=== PATIENT | female | born 1930 | race Caucasian/White ===

== ENCOUNTER 2018-09-06 14:57 | Inpatient (IN) | payer MEDICARE ==
--- NOTE | 2018-09-06 15:26 | ER Document Report ---
ED Respiratory Problem - General Stated Complaint: DIFFICULTY BREATHING Time Seen by Provider: 09/06/18 15:09 Mode of Arrival: Stretcher Information source: Relative TRAVEL OUTSIDE OF THE [place] IN LAST 30 DAYS: No - HPI Patient complains to provider of: Cough, Short of breath Onset: Other - 3 days Duration: Worse/persistent Severity: Moderate Context: Hx CHF Short of Breath: Moderate Cough: Nonproductive Associated symptoms: Ankle/leg swelling, Congestion, Cough, Difficulty breathing, Short of breath Notes: Patient is an 88-year-old female brought to the emergency room by EMS from [facility] for complaints of fever, edema, shortness of breath, nonproductive cough, decreased responsiveness, family who accompanied patient to the emergency department reports that her symptoms have been worsening over the past 3 days, 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, was discharged to rehab facility secondary to ongoing need for IV antibiotics, has a PICC line in the left upper extremity, patient also has a history of atrial fibrillation, and congestive heart failure, family reports and I confirmed from intermediate reports that patient is not currently on any furosemide or blood thinner, although she has been in the past, she has become increasing lethargic, has had approximate 40 pound weight gain since June and her overall health has declined with significant worsening over the past 2-3 days - Related Data Allergies/Adverse Reactions: No Known Allergies Allergy (Unverified 09/06/18 19:46) Past Medical History - General Information source: Relative - Social History Smoking Status: Unknown if Ever Smoked Family History: Reviewed & Not Pertinent Review of Systems - Review of Systems Constitutional: See HPI EENT: No symptoms reported Cardiovascular: See HPI Respiratory: See HPI Gastrointestinal: No symptoms reported Genitourinary: No symptoms reported Female Genitourinary: No symptoms reported Musculoskeletal: No symptoms reported Skin: No symptoms reported Hematologic/Lymphatic: No symptoms reported Neurological/Psychological: See HPI -: Yes All other systems reviewed and negative Physical Exam - Vital signs Vitals: Pulse Ox 93 09/06/18 15:08 Interpretation: Tachycardic - General General appearance: Lethargic In distress: Moderate - HEENT Head: Normocephalic, Atraumatic Eyes: Normal Conjunctiva: Normal Eyelashes: Normal Pupils: PERRL Pharynx: Normal Neck: Normal - Respiratory Respiratory status: Labored Chest status: Nontender Breath sounds: Rales Chest palpation: Normal - Cardiovascular Rhythm: Irregularly irregular, Tachycardia Murmur: No - Abdominal Inspection: Normal, Obese Distension: No distension Bowel sounds: Normal Tenderness: Nontender Organomegaly: No organomegaly - Back Back: Normal, Nontender - Extremities General upper extremity: Edema, Normal ROM, Normal temperature General lower extremity: Edema, Normal ROM. No: Hunter's sign - Neurological Neuro grossly intact: Yes Cognition: Inattentive Katina Coma Scale Eye Opening: To Voice Katina Coma Scale Verbal: Confused Katina Coma Scale Motor: Obeys Commands Goodman Coma Scale Total: 13 Motor strength normal: LUE, RUE, LLE, RLE - Skin Skin Temperature: Cool Skin Moisture: Dry Skin Color: Pale Course - Re-evaluation Re-evalutation: 09/06/18 17:02 Patient discussed with hospitalist, Dr. Mendoza who agrees to admit but would like to evaluate patient to decide which type of bed assignment patient requires 09/06/18 28:24 Patient was seen and evaluated by Dr. Mendoza who requested an IMCU bed - Vital Signs Vital signs: Temp Pulse Resp BP Pulse Ox 97.4 F 16 91/55 L 96 09/06/18 19:08 09/06/18 21:01 09/06/18 21:00 09/06/18 21:01 - Laboratory Result Diagrams: 09/06/18 15:42 09/06/18 15:42 Laboratory results interpreted by me: 09/06/18 09/06/18 09/06/18 15:42 15:42 15:42 WBC 0.4 L* RBC 3.58 L Hgb 10.1 L Hct 31.2 L RDW 20.1 H Seg Neutrophils % 3.5 L Lymphocytes % 72.3 H Monocytes % 20.4 H Absolute Neutrophils 0.0 L Absolute Lymphocytes 0.3 L PT APTT Chloride 108 H Carbon Dioxide 19 L BUN 32 H Est GFR ( Amer) 54 L Est GFR (Non-Af Amer) 45 L Lactic Acid Direct Bilirubin Alkaline Phosphatase NT-Pro-B Natriuret Pep 71015 H Total Protein Albumin Vitamin B12 TSH Free T3 pg/mL Urine Ascorbic Acid 09/06/18 09/06/18 09/06/18 15:42 15:42 15:42 WBC RBC Hgb Hct RDW Seg Neutrophils % Lymphocytes % Monocytes % Absolute Neutrophils Absolute Lymphocytes PT 16.8 H APTT 43.0 H Chloride Carbon Dioxide BUN Est GFR ( Amer) Est GFR (Non-Af Amer) Lactic Acid 3.6 H Direct Bilirubin Alkaline Phosphatase NT-Pro-B Natriuret Pep Total Protein Albumin Vitamin B12 TSH 39.70 H Free T3 pg/mL 1.41 L Urine Ascorbic Acid 09/06/18 09/06/18 15:42 18:28 WBC RBC Hgb Hct RDW Seg Neutrophils % Lymphocytes % Monocytes % Absolute Neutrophils Absolute Lymphocytes PT APTT Chloride Carbon Dioxide BUN Est GFR ( Amer) Est GFR (Non-Af Amer) Lactic Acid Direct Bilirubin 0.7 H Alkaline Phosphatase 153 H NT-Pro-B Natriuret Pep Total Protein 5.6 L Albumin 2.3 L Vitamin B12 983.0 H TSH Free T3 pg/mL Urine Ascorbic Acid 20 H - Diagnostic Test Radiology reviewed: Image reviewed, Reports reviewed - EKG Interpretation by Ak EKG shows normal: Sinus rhythm Rate: Tachycardia Discharge - Discharge Clinical Impression: Neutropenic fever Congestive heart failure Qualifiers: Heart failure type: unspecified Heart failure chronicity: unspecified Qualified Code(s): I50.9 - Heart failure, unspecified Condition: Critical Disposition: ADMITTED INPATIENT Admitting Provider: Hospitalist Unit Admitted: [facility]
[2018-09-06 15:58] LABS: VENOUS BLOOD BASE EXCESS -5.8 mmol/L; VENOUS BLOOD HCO3 20.2 mmol/L (20-32); VENOUS BLOOD PCO2 41.5 mmHg (35-63); VENOUS BLOOD PH 7.31 (7.30-7.42)
[2018-09-06 16:09] LABS: ABSOLUTE LYMPHOCYTES (AUTO) 0.3 10^3/uL (0.5-4.7); ABSOLUTE MONOCYTES (AUTO) 0.1 10^3/uL (0.1-1.4); EOSINOPHILS % (AUTO) 3.8 % (0-6); HEMATOCRIT 31.2 % (36.0-47.0); HEMOGLOBIN 10.1 g/dL (12.0-15.5); LYMPHOCYTES % (AUTO) 72.3 % (13-45); MEAN CORPUSCULAR HEMOGLOBIN 28.1 pg (27.0-33.4); MEAN CORPUSCULAR HGB CONC 32.3 g/dL (32.0-36.0); MEAN CORPUSCULAR VOLUME 87 fl (80-97); MONOCYTES % (AUTO) 20.4 % (3-13); RED BLOOD COUNT 3.58 10^6/uL (3.72-5.28); RED CELL DISTRIBUTION WIDTH 20.1 % (11.5-14.0); SEGMENTED NEUTROPHILS % (AUTO) 3.5 % (42-78); TOTAL CELLS COUNTED % (AUTO) 100 %
[2018-09-06 16:10] LABS: ANION GAP 11 (5-19); BLOOD UREA NITROGEN 32 mg/dL (7-20); CALCIUM 8.5 mg/dL (8.4-10.2); CARBON DIOXIDE 19 mmol/L (22-30); CHLORIDE 108 mmol/L (98-107); GLUCOSE 83 mg/dL (75-110); POTASSIUM 4.5 mmol/L (3.6-5.0); SODIUM 138.2 mmol/L (137-145)
[2018-09-06 16:14] LABS: PROTHROMBIN TIME 16.8 SEC (11.4-15.4)
[2018-09-06 16:23] LABS: NT PRO BNP 10700 pg/mL (<450)
[2018-09-06 16:27] LABS: TROPONIN I < 0.012 ng/mL
[2018-09-06 16:28] LABS: FREE T3 1.41 pg/mL (2.77-5.27); FREE T4 (FREE THYROXINE) 1.17 ng/dL (0.78-2.19)
[2018-09-06 16:36] LABS: WHITE BLOOD COUNT 0.4 10^3/uL (4.0-10.5)
[2018-09-06 16:37] LABS: PLATELET COUNT 189 10^3/uL (150-450)
[2018-09-06 16:38] LABS: ANISOCYTOSIS 2+; BURR CELLS 1+; OVALOCYTES SLIGHT; PLATELET CLUMPS PRESENT; PLATELET COMMENT ADEQUATE; POIKILOCYTOSIS 2+
[2018-09-06 16:42] LABS: THYROID STIMULATING HORMONE 39.7 uIU/mL (0.47-4.68)
[2018-09-06 17:11] LABS: A TYPE INFLUENZA AG NEGATIVE (NEGATIVE); B INFLUENZA AG NEGATIVE (NEGATIVE)
--- NOTE | 2018-09-06 17:13 | RADIOLOGY REPORT (SQ) ---
EXAM DESCRIPTION: CHEST 2 VIEWS COMPLETED DATE/TIME: 09/06/2018 4:28 pm REASON FOR STUDY: cough, fever COMPARISON: None. EXAM PARAMETERS: NUMBER OF VIEWS: two views TECHNIQUE: Digital Frontal and Lateral radiographic views of the chest acquired. RADIATION DOSE: NA LIMITATIONS: none FINDINGS: LUNGS AND PLEURA: Small bilateral pleural effusions. MEDIASTINUM AND HILAR STRUCTURES: No masses or contour abnormalities. HEART AND VASCULAR STRUCTURES: Cardiomegaly status post median sternotomy. BONES: Disc degenerative disease of the thoracic spine. HARDWARE: None in the chest. OTHER: No other significant finding. IMPRESSION: Cardiomegaly with small bilateral pleural effusions. TECHNICAL DOCUMENTATION: JOB ID: [id number] [employer]- All Rights Reserved Reading location - IP/workstation name: [email or web address]
[2018-09-06] MEDS ORDERED: FUROSEMIDE INJ/PF 20 MG/2 ML SDV IV ONE (18:32)
[2018-09-06 18:59] LABS: APPEARANCE,URINE SLIGHTLY-CLOUDY; BILIRUBIN,URINE NEGATIVE (NEGATIVE); COLOR,URINE AMBER; GLUCOSE, URINE NEGATIVE (NEGATIVE); KETONES,URINE NEGATIVE (NEGATIVE); LEUKOCYTE ESTERASE,URINE NEGATIVE (NEGATIVE); NITRITE,URINE NEGATIVE (NEGATIVE); PROTEIN,URINE NEGATIVE (NEGATIVE); URINE SPECIFIC GRAVITY 1.019; UROBILINOGEN,URINE NEGATIVE mg/dL (<2.0)
--- NOTE | 2018-09-06 19:05 | PDOC H&P ---
History of Present Illness Admission Date/PCP: AMRIT CHACKO MD History of Present Illness: ALIVIA YU is a 88 year old female with a history of atrial fibrillation, hypothyroidism, and possibly heart failure, along with Alzheimer's dementia and history of stroke x2 who recently moved down here in June from [place] to be closer to her daughter. Shortly afterwards, while in assisted living, she fell and had a right femur fracture. She went to [facility] and had open reduction internal fixation. She went to a half-way facility and went back to [facility] because she had developed an infection of the prosthesis. Infectious disease was consulted and she was put on ceftaroline for an as yet unknown organism. She has been on this antibiotic for several weeks and has another couple of weeks to go. When she left [place] the second time, she went to a different half-way facility, [facility]. Her daughter does not think she is been getting her Lasix. She is apparently had a 40 pound weight gain since June, and the daughter has noticed that the patient has been extremely edematous. EMS was called because the patient was not doing well at the half-way facility. Apparently when EMS got there she had a temperature of 101.9 Fahrenheit. They gave her some Tylenol and came down to 97.8. She was brought to the hospital and was found to have numerous metabolic and hematologic derangements. White blood cell count was 0.4. BNP was 10,700. Lactate was 3.6. TSH was almost 40. She is being admitted for further evaluation and workup. Social History Smoking Status: Unknown if Ever Smoked Family History Family History: Reviewed & Not Pertinent Parental Family History Reviewed: Yes Children Family History Reviewed: Yes Sibling(s) Family History Reviewed.: Yes Review of Systems All systems: reviewed and no additional remarkable complaints except as stated - All systems reviewed with the patient and her daughter who was at the bedside and were negative except as noted above Physical Exam Vital Signs: Temp Pulse Resp BP Pulse Ox 22 H 100/68 93 09/06/18 16:01 09/06/18 16:01 09/06/18 16:01 General appearance: PRESENT: cooperative, disheveled, hard of hearing, mild distress Head exam: PRESENT: atraumatic, normocephalic Eye exam: PRESENT: EOMI, PERRLA. ABSENT: conjunctival injection, nystagmus, scleral icterus Ear exam: PRESENT: normal external ear exam Mouth exam: PRESENT: moist, neck supple Teeth exam: PRESENT: poor dentation Throat exam: PRESENT: post pharyngeal erythema Neck exam: PRESENT: full ROM, JVD - Bilateral. ABSENT: carotid bruit, lymphadenopathy, meningismus, tenderness, thyromegaly Respiratory exam: PRESENT: crackles - Bilateral, symmetrical, unlabored. ABSENT: accessory muscle use, chest wall tenderness, prolonged expiratory phas, rhonchi, tachypnea, wheezes Cardiovascular exam: PRESENT: irregular rhythm Pulses: PRESENT: normal carotid pulses Vascular exam: PRESENT: normal capillary refill GI/Abdominal exam: PRESENT: normal bowel sounds, soft. ABSENT: distended, guarding, rebound, tenderness Extremities exam: PRESENT: pedal edema, other - 3+ leg edema bilaterally, 3+ upper extremity edema bilaterally. ABSENT: clubbing Musculoskeletal exam: PRESENT: normal inspection - Surgical incision was unremarkable. ABSENT: deformity Neurological exam: PRESENT: awake, oriented to person, other - Could not oth erwise evaluate the patient's neurological status due to her inability to comply. ABSENT: oriented to place, oriented to situation Psychiatric exam: PRESENT: flat affect Skin exam: PRESENT: dry, warm Results Laboratory Results: 09/06/18 15:42 09/06/18 15:42 09/06/18 09/06/18 09/06/18 15:42 15:42 15:42 WBC 0.4 L* RBC 3.58 L Hgb 10.1 L Hct 31.2 L MCV 87 MCH 28.1 MCHC 32.3 RDW 20.1 H Plt Count 189 Seg Neutrophils % 3.5 L Lymphocytes % 72.3 H Monocytes % 20.4 H Eosinophils % 3.8 Basophils % 0.0 Absolute Neutrophils 0.0 L Absolute Lymphocytes 0.3 L Absolute Monocytes 0.1 Absolute Eosinophils 0.0 Absolute Basophils 0.0 VBG pH VBG pCO2 VBG HCO3 VBG Base Excess Sodium 138.2 Potassium 4.5 Chloride 108 H Carbon Dioxide 19 L Anion Gap 11 BUN 32 H Creatinine 1.15 Est GFR ( Amer) 54 L Est GFR (Non-Af Amer) 45 L Glucose 83 Lactic Acid Calcium 8.5 TSH 39.70 H Free T4 1.17 Free T3 pg/mL 1.41 L 09/06/18 09/06/18 15:42 15:42 WBC RBC Hgb Hct MCV MCH MCHC RDW Plt Count Seg Neutrophils % Lymphocytes % Monocytes % Eosinophils % Basophils % Absolute Neutrophils Absolute Lymphocytes Absolute Monocytes Absolute Eosinophils Absolute Basophils VBG pH 7.31 VBG pCO2 41.5 VBG HCO3 20.2 VBG Base Excess -5.8 Sodium Potassium Chloride Carbon Dioxide Anion Gap BUN Creatinine Est GFR ( Amer) Est GFR (Non-Af Amer) Glucose Lactic Acid 3.6 H Calcium TSH Free T4 Free T3 pg/mL 09/06/18 15:42 Troponin I < 0.012 NT-Pro-B Natriuret Pep 45569 H Impressions: Chest X-Ray 09/06/18 15:11 IMPRESSION: Cardiomegaly with small bilateral pleural effusions. Assessment and Plan - Diagnosis (1) Neutropenia Qualifiers: Neutropenia type: unspecified Qualified Code(s): D70.9 - Neutropenia, unspecified Is this a current diagnosis for this admission?: Yes Plan: Multiple different reasons why this could be happening. It could be due to the ceftaroline, could be due to the infection. She has no history of any autoimmune disease or immunosuppressive therapy. Because of the possible seriousness of the infection that required ceftaroline, I am reluctant to simply discontinue it. I have the information for her infectious disease doctor that prescribed it, a Dr. Stephani Maharaj in [place], . I will try to contact her to find out more information about this drug and the infection that necessitated its prescription. (2) Acute congestive heart failure Qualifiers: Heart failure type: unspecified Qualified Code(s): I50.9 - Heart failure, unspecified Is this a current diagnosis for this admission?: Yes Plan: Her lactate is elevated, but she is grossly fluid overloaded and has what sounds like bilateral pulmonary edema. I am going to give her 1 dose of IV Lasix in the hopes that it will help clear up her lungs and help her breathing. I am attempting to get records from [facility], and if there is no echocardiogram on file I will obtain 1 of those and get a cardiology consultation. (3) Hypothyroidism Qualifiers: Hypothyroidism type: unspecified Qualified Code(s): E03.9 - Hypothyroidism, unspecified Is this a current diagnosis for this admission?: Yes Plan: The MAR from [facility] says that she has been getting her Synthroid. Her TSH however is still very high. I am try to get records for [facility] to see if they checked a TSH while she was there, because it may be that her TSH now is an actual improvement over her previous Synthroid dosage adjustment. In June, her Synthroid was increased from 150 mcg 275 mcg. On her AUG from [facility], they have the dosage listed as 200 mcg. I will prescribe 150 mcg here until I can get her records from [facility] to confirm what her dose was there. There is a possibility that her hypothyroidism could be contributing to her edema and elevated lactate, and I am hoping that by giving her a dose of that it will help her current metabolic situation (4) Infected prosthesis of right hip Qualifiers: Encounter type: sequela Qualified Code(s): T84.51XS - Infection and inflammatory reaction due to internal right hip prosthesis, sequela Is this a current diagnosis for this admission?: Yes Plan: Obstructive contact the pharmacy to see if we can get her ceftaroline but no one has answered the phone, but we will keep trying. She apparently got her dose of it today. As noted above, I am going to contact her infectious disease specialist, and if I can get in touch with her, I will consult that the infectious disease service that we use here. - Time Time Spent with patient: 35 or more minutes - Greater than 70 minutes was spent in preparation of this history and physical and coordination of care - Inpatient Certification Medical Necessity: Significant Comorbidiites Make Outpatient Treatment Too Risky, Need Close Monitoring Due to Risk of Patient Decompensation, Need For Continuous Telemetry Monitoring, Need for IV Antibiotics, Risk of Complication if Not Cared For in Hospital
[2018-09-06 19:07] LABS: ALANINE AMINOTRANSFERASE 24 U/L (9-52); ALBUMIN 2.3 g/dL (3.5-5.0); ALKALINE PHOSPHATASE 153 U/L (38-126); ASPARTATE AMINO TRANSFERASE 22 U/L (14-36); BILIRUBIN,DIRECT 0.7 mg/dL (0.0-0.4); BILIRUBIN,TOTAL 1.1 mg/dL (0.2-1.3); TOTAL PROTEIN 5.6 g/dL (6.3-8.2)
[2018-09-06] MEDS ORDERED: DILTIAZEM HCL 120 MG CAP.SR.24H PO SCH (22:00)
--- NOTE | 2018-09-06 22:05 | EKG REPORT ---
SEVERITY:- ABNORMAL ECG - A FIB LOW VOLTAGE IN FRONTAL LEADS BORDERLINE T WAVE ABNORMALITIES : Confirmed by: Linda Vides 06-Sep-2018 22:05:00
[2018-09-06] MEDS: HEPARIN SOD (PORCINE) 5,000 UNIT/ML 1 ML SYRINGE SUBCUT SCH (23:52)
[2018-09-06] MEDS: METOPROLOL SUCCINATE 25 MG TAB.SR.24H PO SCH (23:52)
[2018-09-07] MEDS ORDERED: NORMAL SALINE 10 ML SDV (AFTER EACH USE) IV PRN (03:00)
[2018-09-07] MEDS ORDERED: IPRATROPIUM/ALBUTEROL 0.5-2.5 MG/3 ML AMPUL NEB PRN (03:24)
[2018-09-07] MEDS ORDERED: GUAIFENESIN/CODEINE PHOS 100-10 MG/ 5 ML UDC PO PRN (03:24)
[2018-09-07] MEDS ORDERED: ACETAMINOPHEN 325 MG TABLET PO PRN (03:24)
[2018-09-07] MEDS ORDERED: POLYETHYLENE GLYCOL 3350 POWDER 17 GM/1 PACKET PO PRN (03:24)
[2018-09-07] MEDS ORDERED: OXYCODONE HCL IR 5 MG TABLET PO PRN (03:24)
[2018-09-07] MEDS ORDERED: ONDANSETRON 4 MG TAB.RAPDIS PO PRN (03:45)
[2018-09-07 04:18] LABS: ABSOLUTE LYMPHOCYTES (AUTO) 0.2 10^3/uL (0.5-4.7); ABSOLUTE MONOCYTES (AUTO) 0.1 10^3/uL (0.1-1.4); EOSINOPHILS % (AUTO) 0.7 % (0-6); HEMATOCRIT 25.1 % (36.0-47.0); HEMOGLOBIN 8.2 g/dL (12.0-15.5); LYMPHOCYTES % (AUTO) 61.1 % (13-45); MEAN CORPUSCULAR HEMOGLOBIN 27.8 pg (27.0-33.4); MEAN CORPUSCULAR HGB CONC 32.6 g/dL (32.0-36.0); MEAN CORPUSCULAR VOLUME 85 fl (80-97); MONOCYTES % (AUTO) 36.8 % (3-13); PLATELET COUNT 138 10^3/uL (150-450); RED BLOOD COUNT 2.95 10^6/uL (3.72-5.28); RED CELL DISTRIBUTION WIDTH 19.7 % (11.5-14.0); SEGMENTED NEUTROPHILS % (AUTO) 1.4 % (42-78); TOTAL CELLS COUNTED % (AUTO) 100 %
[2018-09-07 04:34] LABS: ANION GAP 8 (5-19); BLOOD UREA NITROGEN 35 mg/dL (7-20); CALCIUM 8.1 mg/dL (8.4-10.2); CARBON DIOXIDE 21 mmol/L (22-30); CHLORIDE 110 mmol/L (98-107); GLUCOSE 72 mg/dL (75-110); POTASSIUM 3.8 mmol/L (3.6-5.0); SODIUM 138.9 mmol/L (137-145)
[2018-09-07] MEDS: HEPARIN SOD (PORCINE) 5,000 UNIT/ML 1 ML SYRINGE SUBCUT SCH ×2 (05:10→13:55)
[2018-09-07] MEDS ORDERED: LEVOTHYROXINE SODIUM 0.15 MG TABLET PO SCH (06:00)
[2018-09-07] MEDS ORDERED: LORAZEPAM 0.5 MG TABLET PO PRN (06:00)
[2018-09-07] MEDS ORDERED: LEVOTHYROXINE SODIUM 0.1 MG TABLET PO SCH (06:00)
[2018-09-07 06:10] LABS: WHITE BLOOD COUNT 0.3 10^3/uL (4.0-10.5)
[2018-09-07 06:13] LABS: ANISOCYTOSIS 2+; BURR CELLS 3+; HYPOCHROMASIA 1+; OVALOCYTES SLIGHT; PLATELET COMMENT DECREASED; TARGET CELLS 1+
[2018-09-07] MEDS ORDERED: FUROSEMIDE 20 MG TABLET PO SCH (10:00)
[2018-09-07] MEDS ORDERED: CEFTAROLINE FOSAMIL ACETATE IV SCH (10:00)
[2018-09-07] MEDS ORDERED: FERROUS SULFATE 325 MG TABLET PO SCH (10:00)
[2018-09-07] MEDS ORDERED: SENNOSIDES/DOCUSATE 8.6-50 MG 1 EACH TABLET PO SCH (10:00)
[2018-09-07] MEDS ORDERED: ASPIRIN 81 MG TABLET, CHEWABLE PO SCH (10:00)
[2018-09-07] MEDS ORDERED: MULTIVITAMINS W-IRON TABLET, CHEWABLE PO SCH (10:00)
[2018-09-07] MEDS ORDERED: NORMAL SALINE 10 ML SDV (SCHEDULED) IV SCH (10:00)
[2018-09-07] MEDS: DILTIAZEM HCL 240 MG CAPSULE.CR PO SCH ×2 (11:27→12:04)
[2018-09-07] MEDS: METOPROLOL SUCCINATE 25 MG TAB.SR.24H PO SCH ×2 (11:28→11:36)
[2018-09-07] MEDS ORDERED: MORPHINE SULFATE 10 MG/ML INJ ONE (12:53)
[2018-09-07] MEDS ORDERED: MORPHINE SULFATE 10 MG/ML INJ IV PRN (12:53)
--- NOTE | 2018-09-07 13:44 | PDOC CONSULTATION ---
Consultation Consult Date: 09/07/18 Consult reason:: Hematology/Oncology consultation was requested for patient with neutropenia. History of Present Illness Admission Date/PCP: 09/06/18 19:28 AMRIT CHACKO MD History of Present Illness: ALIVIA YU is a 88 year old female who has a history of dementia. Family recently moved patient here from [place] to be closer to family. However, shortly thereafter, in Jun 2018, she fell and broke her right hip. She underwent ORIF and was transferred to SNF for rehab. However, family states that she continued to slowly decline. Her dementia worsened, she did not eat as much, she fell again, hit her head and was re-admitted to the hospital. She was then found to have temperature and surgical wound infection. I&D was performed and she was started in IV antibiotics for a planned 6 weeks of therapy. She was then transferred back to SNF for the IV antibiotics and continued to decline. Over the last 24 hour, her breathing has become more labored and her extremities have started to swell. Family requested transfer to hospital. She currently is only able to moan and express discomfort. Her breathing is labored and she is no longer safe to swallow any solids or liquids. Family is now requesting comfort measures. Past Medical History Cardiac Medical History: Reports: Atrial Fibrillation, Congestive Heart Failure, Hyperlipidema, Hypertension Psychiatric Medical History: Reports: Depression - anxiety Hematology: Reports: Anemia Past Surgical History Past Surgical History: Reports: Orthopedic Surgery - r hip Social History Smoking Status: Never Smoker Frequency of Alcohol Use: None Hx Recreational Drug Use: No Drugs: None Hx Prescription Drug Abuse: No Family History Family History: Reviewed & Not Pertinent Parental Family History Reviewed: No Children Family History Reviewed: No Sibling(s) Family History Reviewed.: No Medication/Allergy Home Medications: Acetaminophen [Tylenol 325 mg Tablet] 650 mg PO Q4HP PRN 09/07/18 Aspirin [Aspirin 81 mg Chewable Tablet] 81 mg PO QAM 09/07/18 Ceftaroline Fosamil Acetate [Teflaro] 600 mg IV BID 09/07/18 Diltiazem HCl [Cardizem Cd 240 mg Capsule.cr] 240 mg PO QAM 09/07/18 Ferrous Sulfate [Feosol 325 mg Tablet] 325 mg PO QAM 09/07/18 Guaifenesin [Cough Syrup] 10 ml PO QID 09/07/18 Ipratropium/Albuterol Sulfate [Duoneb 3 ml Ampul] 3 ml NEB RTQ2HP PRN 09/07/18 Levothyroxine Sodium [Synthroid] 200 mcg PO Q6AM 09/07/18 Lorazepam [Ativan 0.5 mg Tablet] 0.5 mg PO Q8HP PRN 09/07/18 Multivitamin [Multiple Vitamins] 1 each PO QAM 09/07/18 Ondansetron HCl [Zofran 4 mg Tablet] 4 mg PO Q6HP PRN 09/07/18 Oxycodone HCl [Oxy-Ir 5 mg Tablet] 5 mg PO Q4HP PRN 09/07/18 Polyethylene Glycol 3350 [Miralax Powder 17 gm/Packet] 1 packet PO DAILYP PRN 09/07/18 Sennosides/Docusate Sodium [Senexon-S Tablet] 2 each PO BID 09/07/18 Allergies/Adverse Reactions: No Known Allergies Allergy (Unverified 09/06/18 19:46) Review of Systems Review of Systems: Unable to be obtained, except as per family in the HPI. Physical Exam Vital Signs: Temp Pulse Resp BP Pulse Ox 97.7 F 76 20 93/43 L 98 09/07/18 08:18 09/07/18 08:18 09/07/18 08:18 09/07/18 08:18 09/07/18 08:18 Intake & Output 09/06/18 09/07/18 09/08/18 06:59 06:59 06:59 Weight 84.7 kg Exam: Overweight, 88 year old female. Head exam: PRESENT: normocephalic Mouth exam: PRESENT: tongue midline Respiratory exam: PRESENT: other - upper airway noise with marked "rattle" Cardiovascular exam: PRESENT: other - Obscured, but pulse is regular. Pulses: PRESENT: normal radial pulses GI/Abdominal exam: PRESENT: soft. ABSENT: tenderness Extremities exam: PRESENT: +2 edema Neurological exam: PRESENT: awake. ABSENT: oriented to person, oriented to place, oriented to time, oriented to situation Psychiatric exam: PRESENT: appropriate affect Skin exam: PRESENT: normal color Results Laboratory Results: 09/07/18 04:00 09/07/18 04:00 09/06/18 09/06/18 09/06/18 15:42 15:42 15:42 WBC 0.4 L* RBC 3.58 L Hgb 10.1 L Hct 31.2 L MCV 87 MCH 28.1 MCHC 32.3 RDW 20.1 H Plt Count 189 Seg Neutrophils % 3.5 L Lymphocytes % 72.3 H Monocytes % 20.4 H Eosinophils % 3.8 Basophils % 0.0 Absolute Neutrophils 0.0 L Absolute Lymphocytes 0.3 L Absolute Monocytes 0.1 Absolute Eosinophils 0.0 Absolute Basophils 0.0 VBG pH VBG pCO2 VBG HCO3 VBG Base Excess Sodium 138.2 Potassium 4.5 Chloride 108 H Carbon Dioxide 19 L Anion Gap 11 BUN 32 H Creatinine 1.15 Est GFR ( Amer) 54 L Est GFR (Non-Af Amer) 45 L Glucose 83 Lactic Acid Calcium 8.5 Total Bilirubin AST ALT Alkaline Phosphatase Total Protein Albumin Vitamin B12 Folate TSH 39.70 H Free T4 1.17 Free T3 pg/mL 1.41 L Urine Color Urine Appearance Urine pH Ur Specific [place] Urine Protein Urine Glucose (UA) Urine Ketones Urine Blood Urine Nitrite Ur Leukocyte Esterase Urine WBC (Auto) Urine RBC (Auto) 09/06/18 09/06/18 09/06/18 15:42 15:42 15:42 WBC RBC Hgb Hct MCV MCH MCHC RDW Plt Count Seg Neutrophils % Lymphocytes % Monocytes % Eosinophils % Basophils % Absolute Neutrophils Absolute Lymphocytes Absolute Monocytes Absolute Eosinophils Absolute Basophils VBG pH 7.31 VBG pCO2 41.5 VBG HCO3 20.2 VBG Base Excess -5.8 Sodium Potassium Chloride Carbon Dioxide Anion Gap BUN Creatinine Est GFR ( Amer) Est GFR (Non-Af Amer) Glucose Lactic Acid 3.6 H Calcium Total Bilirubin 1.1 AST 22 ALT 24 Alkaline Phosphatase 153 H Total Protein 5.6 L Albumin 2.3 L Vitamin B12 983.0 H Folate 13.60 TSH Free T4 Free T3 pg/mL Urine Color Urine Appearance Urine pH Ur Specific [place] Urine Protein Urine Glucose (UA) Urine Ketones Urine Blood Urine Nitrite Ur Leukocyte Esterase Urine WBC (Auto) Urine RBC (Auto) 09/06/18 09/06/18 09/07/18 18:28 20:40 04:00 WBC 0.3 L* RBC 2.95 L Hgb 8.2 L Hct 25.1 L MCV 85 MCH 27.8 MCHC 32.6 RDW 19.7 H Plt Count 138 L Seg Neutrophils % 1.4 L Lymphocytes % 61.1 H Monocytes % 36.8 H Eosinophils % 0.7 Basophils % 0.0 Absolute Neutrophils 0.0 L Absolute Lymphocytes 0.2 L Absolute Monocytes 0.1 Absolute Eosinophils 0.0 Absolute Basophils 0.0 VBG pH VBG pCO2 VBG HCO3 VBG Base Excess Sodium Potassium Chloride Carbon Dioxide Anion Gap BUN Creatinine Est GFR ( Amer) Est GFR (Non-Af Amer) Glucose Lactic Acid 1.4 Calcium Total Bilirubin AST ALT Alkaline Phosphatase Total Protein Albumin Vitamin B12 Folate TSH Free T4 Free T3 pg/mL Urine Color JULISA Urine Appearance SLIGHTLY-CLOUDY Urine pH 5.0 Ur Specific [place] 1.019 Urine Protein NEGATIVE Urine Glucose (UA) NEGATIVE Urine Ketones NEGATIVE Urine Blood NEGATIVE Urine Nitrite NEGATIVE Ur Leukocyte Esterase NEGATIVE Urine WBC (Auto) 2 Urine RBC (Auto) 1 09/07/18 04:00 WBC RBC Hgb Hct MCV MCH MCHC RDW Plt Count Seg Neutrophils % Lymphocytes % Monocytes % Eosinophils % Basophils % Absolute Neutrophils Absolute Lymphocytes Absolute Monocytes Absolute Eosinophils Absolute Basophils VBG pH VBG pCO2 VBG HCO3 VBG Base Excess Sodium 138.9 Potassium 3.8 Chloride 110 H Carbon Dioxide 21 L Anion Gap 8 BUN 35 H Creatinine 1.15 Est GFR ( Amer) 54 L Est GFR (Non-Af Amer) 45 L Glucose 72 L Lactic Acid Calcium 8.1 L Total Bilirubin AST ALT Alkaline Phosphatase Total Protein Albumin Vitamin B12 Folate TSH Free T4 Free T3 pg/mL Urine Color Urine Appearance Urine pH Ur Specific [place] Urine Protein Urine Glucose (UA) Urine Ketones Urine Blood Urine Nitrite Ur Leukocyte Esterase Urine WBC (Auto) Urine RBC (Auto) 09/06/18 15:42 Troponin I < 0.012 NT-Pro-B Natriuret Pep [id number] H Impressions: Chest X-Ray 09/06/18 15:11 IMPRESSION: Cardiomegaly with small bilateral pleural effusions. Assessment & Plan - Diagnosis (1) Congestive heart failure Qualifiers: Heart failure type: unspecified Heart failure chronicity: acute on chronic Qualified Code(s): I50.9 - Heart failure, unspecified (2) Dementia Qualifiers: Dementia type: unspecified type Dementia behavioral disturbance: without behavioral disturbance Qualified Code(s): F03.90 - Unspecified dementia without behavioral disturbance Is this a current diagnosis for this admission?: Yes (3) Infected prosthesis of right hip Qualifiers: Encounter type: sequela Qualified Code(s): T84.51XS - Infection and inflammatory reaction due to internal right hip prosthesis, sequela Is this a current diagnosis for this admission?: Yes (4) Neutropenia Qualifiers: Neutropenia type: unspecified Qualified Code(s): D70.9 - Neutropenia, unspecified Is this a current diagnosis for this admission?: Yes - Plan Summary Plan Summary: I spent 30 minutes in consultation with the patient's daughters. I have explained the situation and the fact that the patient's multiple medical problems at this point are causing her body to shut down. I believe that because of the infection, she is having worsening CHF and neutropenia. Infection may not improve without further surgery and surgery is not possible with her CHF and neutropenia. Patient is already a DNR and family is now requesting Hospice/Comfort measures here in the Hospital. They do not believe they can manage her at home, and I am unsure that he will survive long enough for us to arrange transport home. Family agrees with comfort measures and would like to make sure that her breathing is such that she is not in discomfort or is struggling to breathe. I have ordered scopolamine and IV morphine. I will stop all other measures, except for patient's comfort. I will continue to follow her for palliative care. Please call if needed.
[2018-09-07] MEDS ORDERED: SCOPOLAMINE HYDROBROMIDE 1.5 MG PATCH.TD72 TD SCH (14:00)
--- NOTE | 2018-09-07 15:04 | PDOC PROGRESS REPORT ---
Subjective Progress Note for:: 09/07/18 Subjective:: Patient's condition has not changed overnight. Afebrile but still encephalopathic. Blood pressures have been low but stable. Family talk to hematology today and decided that, given her multiple complicated comorbidities and her current poor condition, they want to make her comfort measures. Reason For Visit: NEUTROPENIC FEVER,CONGESTIVE HEART FAILURE Physical Exam Vital Signs: Temp Pulse Resp BP Pulse Ox 97.9 F 90 20 90/49 L 92 09/07/18 11:45 09/07/18 11:45 09/07/18 11:45 09/07/18 11:45 09/07/18 11:45 Intake & Output 09/06/18 09/07/18 09/08/18 06:59 06:59 06:59 Intake Total 0 Balance 0 Weight 84.7 kg General appearance: PRESENT: cooperative, disheveled, hard of hearing, mild distress Respiratory exam: PRESENT: crackles - Bilateral, symmetrical, unlabored. ABSENT: accessory muscle use, chest wall tenderness, prolonged expiratory phas, rhonchi, tachypnea, wheezes Cardiovascular exam: PRESENT: irregular rhythm Pulses: PRESENT: normal carotid pulses Vascular exam: PRESENT: normal capillary refill GI/Abdominal exam: PRESENT: normal bowel sounds, soft. ABSENT: distended, guarding, rebound, tenderness Extremities exam: PRESENT: pedal edema, other - 3+ leg edema bilaterally, 3+ upper extremity edema bilaterally. ABSENT: clubbing Musculoskeletal exam: PRESENT: normal inspection - Surgical incision was unremarkable. ABSENT: deformity Neurological exam: PRESENT: awake, oriented to person Results Laboratory Results: 09/07/18 04:00 09/07/18 04:00 09/06/18 09/06/18 09/06/18 15:42 15:42 15:42 WBC 0.4 L* RBC 3.58 L Hgb 10.1 L Hct 31.2 L MCV 87 MCH 28.1 MCHC 32.3 RDW 20.1 H Plt Count 189 Seg Neutrophils % 3.5 L Lymphocytes % 72.3 H Monocytes % 20.4 H Eosinophils % 3.8 Basophils % 0.0 Absolute Neutrophils 0.0 L Absolute Lymphocytes 0.3 L Absolute Monocytes 0.1 Absolute Eosinophils 0.0 Absolute Basophils 0.0 VBG pH VBG pCO2 VBG HCO3 VBG Base Excess Sodium 138.2 Potassium 4.5 Chloride 108 H Carbon Dioxide 19 L Anion Gap 11 BUN 32 H Creatinine 1.15 Est GFR ( Amer) 54 L Est GFR (Non-Af Amer) 45 L Glucose 83 Lactic Acid Calcium 8.5 Total Bilirubin AST ALT Alkaline Phosphatase Total Protein Albumin Vitamin B12 Folate TSH 39.70 H Free T4 1.17 Free T3 pg/mL 1.41 L Urine Color Urine Appearance Urine pH Ur Specific [place] Urine Protein Urine Glucose (UA) Urine Ketones Urine Blood Urine Nitrite Ur Leukocyte Esterase Urine WBC (Auto) Urine RBC (Auto) 09/06/18 09/06/18 09/06/18 15:42 15:42 15:42 WBC RBC Hgb Hct MCV MCH MCHC RDW Plt Count Seg Neutrophils % Lymphocytes % Monocytes % Eosinophils % Basophils % Absolute Neutrophils Absolute Lymphocytes Absolute Monocytes Absolute Eosinophils Absolute Basophils VBG pH 7.31 VBG pCO2 41.5 VBG HCO3 20.2 VBG Base Excess -5.8 Sodium Potassium Chloride Carbon Dioxide Anion Gap BUN Creatinine Est GFR ( Amer) Est GFR (Non-Af Amer) Glucose Lactic Acid 3.6 H Calcium Total Bilirubin 1.1 AST 22 ALT 24 Alkaline Phosphatase 153 H Total Protein 5.6 L Albumin 2.3 L Vitamin B12 983.0 H Folate 13.60 TSH Free T4 Free T3 pg/mL Urine Color Urine Appearance Urine pH Ur Specific [place] Urine Protein Urine Glucose (UA) Urine Ketones Urine Blood Urine Nitrite Ur Leukocyte Esterase Urine WBC (Auto) Urine RBC (Auto) 09/06/18 09/06/18 09/07/18 18:28 20:40 04:00 WBC 0.3 L* RBC 2.95 L Hgb 8.2 L Hct 25.1 L MCV 85 MCH 27.8 MCHC 32.6 RDW 19.7 H Plt Count 138 L Seg Neutrophils % 1.4 L Lymphocytes % 61.1 H Monocytes % 36.8 H Eosinophils % 0.7 Basophils % 0.0 Absolute Neutrophils 0.0 L Absolute Lymphocytes 0.2 L Absolute Monocytes 0.1 Absolute Eosinophils 0.0 Absolute Basophils 0.0 VBG pH VBG pCO2 VBG HCO3 VBG Base Excess Sodium Potassium Chloride Carbon Dioxide Anion Gap BUN Creatinine Est GFR ( Amer) Est GFR (Non-Af Amer) Glucose Lactic Acid 1.4 Calcium Total Bilirubin AST ALT Alkaline Phosphatase Total Protein Albumin Vitamin B12 Folate TSH Free T4 Free T3 pg/mL Urine Color JULISA Urine Appearance SLIGHTLY-CLOUDY Urine pH 5.0 Ur Specific [place] 1.019 Urine Protein NEGATIVE Urine Glucose (UA) NEGATIVE Urine Ketones NEGATIVE Urine Blood NEGATIVE Urine Nitrite NEGATIVE Ur Leukocyte Esterase NEGATIVE Urine WBC (Auto) 2 Urine RBC (Auto) 1 09/07/18 04:00 WBC RBC Hgb Hct MCV MCH MCHC RDW Plt Count Seg Neutrophils % Lymphocytes % Monocytes % Eosinophils % Basophils % Absolute Neutrophils Absolute Lymphocytes Absolute Monocytes Absolute Eosinophils Absolute Basophils VBG pH VBG pCO2 VBG HCO3 VBG Base Excess Sodium 138.9 Potassium 3.8 Chloride 110 H Carbon Dioxide 21 L Anion Gap 8 BUN 35 H Creatinine 1.15 Est GFR ( Amer) 54 L Est GFR (Non-Af Amer) 45 L Glucose 72 L Lactic Acid Calcium 8.1 L Total Bilirubin AST ALT Alkaline Phosphatase Total Protein Albumin Vitamin B12 Folate TSH Free T4 Free T3 pg/mL Urine Color Urine Appearance Urine pH Ur Specific [place] Urine Protein Urine Glucose (UA) Urine Ketones Urine Blood Urine Nitrite Ur Leukocyte Esterase Urine WBC (Auto) Urine RBC (Auto) 09/06/18 15:42 Troponin I < 0.012 NT-Pro-B Natriuret Pep [id number] H Impressions: Chest X-Ray 09/06/18 15:11 IMPRESSION: Cardiomegaly with small bilateral pleural effusions. Assessment and Plan - Diagnosis (1) Neutropenia Qualifiers: Neutropenia type: unspecified Qualified Code(s): D70.9 - Neutropenia, unspecified Is this a current diagnosis for this admission?: Yes Plan: Family has decided on comfort measures only (2) Acute congestive heart failure Qualifiers: Heart failure type: unspecified Qualified Code(s): I50.9 - Heart failure, unspecified Is this a current diagnosis for this admission?: Yes Plan: Comfort measures only, all other measures have been stopped (3) Hypothyroidism Qualifiers: Hypothyroidism type: unspecified Qualified Code(s): E03.9 - Hypothyroidism, unspecified Is this a current diagnosis for this admission?: Yes Plan: Comfort measures only at this time per the family. (4) Infected prosthesis of right hip Qualifiers: Encounter type: sequela Qualified Code(s): T84.51XS - Infection and inflammatory reaction due to internal right hip prosthesis, sequela Is this a current diagnosis for this admission?: Yes Plan: Antibiotics have been discontinued at the family's request, comfort measures only - Time Time Spent with patient: 25-34 minutes
[2018-09-07] MEDS: MORPHINE SULFATE 10 MG/ML INJ IV PRN ×4 (16:35→21:58)
[2018-09-07 23:31] VITALS: BP 81/46
[2018-09-08] MEDS: MORPHINE SULFATE 10 MG/ML INJ IV PRN ×5 (06:23→15:15)
--- NOTE | 2018-09-08 07:53 | PDOC PROGRESS REPORT ---
Subjective Progress Note for:: 09/08/18 Subjective:: Patient resting peacefully. Daughter at bedside. She states that yesterday was difficult, but finally, after SCDs and BP cuff was removed and morphine had been given, patient rested through the night. Family members are taking turns at bedside. They are very pleased with her care here. Reason For Visit: NEUTROPENIC FEVER,CONGESTIVE HEART FAILURE Physical Exam Vital Signs: Temp Pulse Resp BP Pulse Ox 97.9 F 76 14 81/46 L 90 L 09/07/18 20:20 09/08/18 07:00 09/07/18 20:20 09/07/18 20:20 09/07/18 20:20 Intake & Output 09/07/18 09/08/18 09/09/18 06:59 06:59 06:59 Intake Total 0 Balance 0 Weight 84.7 kg 84.6 kg General appearance: PRESENT: well-nourished Head exam: PRESENT: normocephalic Respiratory exam: PRESENT: other - periods of apnea followed by 1-2 breaths with rattle. Neurological exam: PRESENT: other - Patient is resting comfortably and is actively dying. Skin exam: PRESENT: pallor Results Laboratory Results: 09/07/18 04:00 09/07/18 04:00 09/06/18 15:42 Troponin I < 0.012 NT-Pro-B Natriuret Pep [id number] H Impressions: Chest X-Ray 09/06/18 15:11 IMPRESSION: Cardiomegaly with small bilateral pleural effusions. Assessment & Plan - Diagnosis (1) Congestive heart failure Qualifiers: Heart failure type: unspecified Heart failure chronicity: acute on chronic Qualified Code(s): I50.9 - Heart failure, unspecified Is this a current diagnosis for this admission?: Yes (2) Dementia Qualifiers: Dementia type: unspecified type Dementia behavioral disturbance: without behavioral disturbance Qualified Code(s): F03.90 - Unspecified dementia without behavioral disturbance Is this a current diagnosis for this admission?: Yes (3) Infected prosthesis of right hip Qualifiers: Encounter type: sequela Qualified Code(s): T84.51XS - Infection and inflammatory reaction due to internal right hip prosthesis, sequela Is this a current diagnosis for this admission?: Yes (4) Neutropenia Qualifiers: Neutropenia type: unspecified Qualified Code(s): D70.9 - Neutropenia, unspecified Is this a current diagnosis for this admission?: Yes - Plan Summary Plan Summary: Will continue comfort measures only. Patient and family are at peace. No changes today. All questions were answered.
[2018-09-08 11:48] LABS: PATH REVIEW PATHOLOGIST REVIEWED
--- NOTE | 2018-09-08 12:41 | PDOC PROGRESS REPORT ---
Subjective Progress Note for:: 09/08/18 Subjective:: She had kind of a rough night last night and was having some trouble breathing and her breath sounds were pretty wet, and the family was very concerned. Since then she settled down a lot more comfortable. Her daughter was in the room with her and we talked for a few minutes whenever I came in. She seems very pleased with how her mother is being cared for. Reason For Visit: NEUTROPENIC FEVER,CONGESTIVE HEART FAILURE Physical Exam Vital Signs: Temp Pulse Resp BP Pulse Ox 97.9 F 76 14 81/46 L 90 L 09/07/18 20:20 09/08/18 07:00 09/07/18 20:20 09/07/18 20:20 09/07/18 20:20 Intake & Output 09/07/18 09/08/18 09/09/18 06:59 06:59 06:59 Intake Total 0 Balance 0 Weight 84.7 kg 84.6 kg General appearance: PRESENT: no acute distress, disheveled, other - Obtunded with very wet breath sounds and weak cough Results Laboratory Results: 09/07/18 04:00 09/07/18 04:00 09/06/18 18:28 Catheterized Urine Urine Culture - Final NO GROWTH 2 DAYS 09/06/18 15:42 Troponin I < 0.012 NT-Pro-B Natriuret Pep [id number] H Impressions: Chest X-Ray 09/06/18 15:11 IMPRESSION: Cardiomegaly with small bilateral pleural effusions. Assessment and Plan - Diagnosis (1) Neutropenia Qualifiers: Neutropenia type: unspecified Qualified Code(s): D70.9 - Neutropenia, unspecified Is this a current diagnosis for this admission?: Yes Plan: Family has decided on comfort measures only (2) Acute congestive heart failure Qualifiers: Heart failure type: unspecified Qualified Code(s): I50.9 - Heart failure, unspecified Is this a current diagnosis for this admission?: Yes Plan: Comfort measures only, all other measures have been stopped (3) Hypothyroidism Qualifiers: Hypothyroidism type: unspecified Qualified Code(s): E03.9 - Hypothyroidism, unspecified Is this a current diagnosis for this admission?: Yes Plan: Comfort measures only at this time per the family. (4) Infected prosthesis of right hip Qualifiers: Encounter type: sequela Qualified Code(s): T84.51XS - Infection and inflammatory reaction due to internal right hip prosthesis, sequela Is this a current diagnosis for this admission?: Yes Plan: Antibiotics have been discontinued at the family's request, comfort measures only - Time Time Spent with patient: 15-24 minutes
--- NOTE | 2018-09-15 18:41 | Death Summary ---
Summary Date : 09/08/18 Time of :: 16:19 Autopsy: No Resuscitation Status: Comfort Measures Only - Final Diagnosis (1) Neutropenia Is this a current diagnosis for this admission?: Yes (2) Acute congestive heart failure Is this a current diagnosis for this admission?: Yes (3) Hypothyroidism Is this a current diagnosis for this admission?: Yes (4) Infected prosthesis of right hip Is this a current diagnosis for this admission?: Yes Hospital Course:: Per her H&P: "ALIVIA YU is a 88 year old female with a history of atrial fibrillation, hypothyroidism, and possibly heart failure, along with Alzheimer's dementia and history of stroke x2 who recently moved down here in June from [place] to be closer to her daughter. Shortly afterwards, while in assisted living, she fell and had a right femur fracture. She went to [facility] and had open reduction internal fixation. She went to a assisted facility and went back to [facility] because she had developed an infection of the prosthesis. Infectious disease was consulted and she was put on ceftaroline for an as yet unknown organism. She has been on this antibiotic for several weeks and has another couple of weeks to go. When she left [place] the second time, she went to a different assisted facility, [facility]. Her daughter does not think she is been getting her Lasix. She is apparently had a 40 pound weight gain since June, and the daughter has noticed that the patient has been extremely edematous. EMS was called because the patient was not doing well at the assisted facility. Apparently when EMS got there she had a temperature of 101.9 Fahrenheit. They gave her some Tylenol and came down to 97.8. She was brought to the hospital and was found to have numerous metabolic and hematologic derangements. White blood cell count was 0.4. BNP was 10,700. Lactate was 3.6. TSH was almost 40. She is being admitted for further evaluation and workup". Because of her neutropenia, she was seen in consultation by hematology. After that consultation, the decision was made to make her comfort measures only by her daughter, because her condition had continued to deteriorate. She was kept comfortable and managed expectantly until she on September 08, 2018 at approximately 1619 hrs.
== END 2018-09-08 20:45 | disposition expired | DRG 293 ==
LOC: ER 14:57 → EH 19:28 → 3W 22:27
PROVIDERS: ADMIT Family Medicine; ATTEND Family Medicine
DX: I11.0 Hypertensive heart disease with heart failure (principal); I50.9 Heart failure, unspecified; E03.9 Hypothyroidism, unspecified; D70.9 Neutropenia, unspecified; R50.81 Fever presenting with conditions classified elsewhere; Z51.5 Encounter for palliative care; T84.51XS Infection and inflammatory reaction due to internal right hip prosthesis, sequela; Z87.81 Personal history of (healed) traumatic fracture; Z91.81 History of falling; Z79.82 Long term (current) use of aspirin; Z79.899 Other long term (current) drug therapy; F32.9 Major depressive disorder, single episode, unspecified; F41.9 Anxiety disorder, unspecified; I48.91 Unspecified atrial fibrillation; E78.5 Hyperlipidemia, unspecified; Z79.2 Long term (current) use of antibiotics; Z66 Do not resuscitate; G30.9 Alzheimer's disease, unspecified; F02.80 Dementia in other diseases classified elsewhere, unspecified severity, without behavioral disturbance, psychotic disturbance, mood disturbance, and anxiety; Z86.73 Personal history of transient ischemic attack (TIA), and cerebral infarction without residual deficits; Z79.890 Hormone replacement therapy
CPT/HCPCS: 36415; 71046; 80048; 80076; 81001; 82525; 82607; 82746; 82803; 83605; 83880; 84439; 84443; 84481; 84484; 85025; 85610; 85730; 87040; 87086; 87804; 93005; 93010; 96374; 99285; J1642; J1644; J1940; J2270; J3490